=== PATIENT | female | born 1955 | race Caucasian/White ===

== ENCOUNTER 2017-08-14 18:21 | Emergency (ER) | payer SELFPAY ==
[~2017-08-14] VITALS: Ht 157.5 cm; Wt 63.0 kg
[~2017-08-14 18:21] MED LIST: ALBU17I INH; BENZ100 PO; IBUP600T26 PO; LORTA5 PO; NEXI20CA PO; ROSU10 PO
[2017-08-14 18:27] VITALS: BP 138/76; PULSE 111; RESP 18; TEMP 96; O2SAT 95
[2017-08-14] MEDS ORDERED: NEXI20CA PO (18:48)
[2017-08-14] MEDS ORDERED: ROSU20 PO (18:48)
[2017-08-14 18:49] VITALS: BP 138/76; PULSE 111; RESP 18; TEMP 98.3; O2SAT 95
[2017-08-14 19:00] VITALS: BP 114/80; PULSE 102; RESP 18; O2SAT 98
[2017-08-14] MEDS ORDERED: RESP: ALBUTEROL 2.5 MG/IPRATROPIUM 0.5 MG NEB (SCH) NEB ONE (19:00)
--- NOTE | 2017-08-14 19:03 | PD ---
HPI Chief Complaint: Respiratory Symptoms Time Seen by Provider: 18:43 Travel History International Travel<30 days: No Contact w/Intl Traveler<30days: No Traveled to known affect area: No History of Present Illness HPI This is a 61-year-old female who has a significant smoking history. Presents to the emergency department with 9 days of nonproductive cough, constant, moderate severity associated with wheezing, worse in the evenings with some subjective fevers. She has completed a course of prednisone which was prescribed to her by [facility] and she's taken several days of amoxicillin but she's not feeling any better and she is not getting any sleep at night. She says she's had pneumonia in the past and that's which she is concerned about. She's not been using any bronchodilators. PFSH Past Medical History Cardiac Catheterization: Yes (NO CAD) High Cholesterol: Yes Diminished Hearing: No GERD: Yes Immunizations Current: Yes Tetanus Vaccination: Unknown Influenza Vaccination: Yes ?: Not Menopausal: Yes Past Surgical History Appendectomy: Yes Joint Replacement: Yes (LEFT KNEE ATHROSCOPY) Other Surgery: Yes (CYCST ON TAILBONE REMOVED) Social History Alcohol Use: Yes Tobacco Use: Yes (1 PPD) Substance Use: No Allergies-Medications (Allergen,Severity, Reaction): Coded Allergies: No Known Allergies (Verified Adverse Reaction, Unknown, 08/14/17) Reported Meds & Prescriptions Reported Meds & Active Scripts Active Reported Nexium (Esomeprazole DR) 20 Mg Capdr 20 Mg PO DAILY Crestor (Rosuvastatin Calcium) 20 Mg Tab 20 Mg PO DAILY Review of Systems Except as stated in HPI: all other systems reviewed are Neg Physical Exam Narrative GENERAL:Well appearing, no acute distress SKIN: Focused skin assessment warm and dry. HEAD: Atraumatic. Normocephalic. EYES: Pupils equal and round. No injection or drainage. ENT: Moist mucous membranes NECK: Trachea midline. CARDIOVASCULAR: Regular rate and rhythm. No murmur appreciated. RESPIRATORY: Mild expiratory wheeze, no accessory muscle use, speaking full sentences GASTROINTESTINAL: Abdomen soft, non-tender, nondistended. MUSCULOSKELETAL: No obvious deformities. NEUROLOGICAL: Awake and alert. No obvious cranial nerve deficits. Moving all extremities. PSYCHIATRIC: Appropriate mood and affect; insight and judgment normal. Data Data Last Documented VS Vital Signs Date Time Temp Pulse Resp B/P (MAP) Pulse Ox O2 Delivery O2 Flow Rate FiO2 11/27/17 19:00 102 18 114/80 (91) 98 08/14/17 19:00 Room Air 08/14/17 18:49 98.3 Orders Orders Chest, Pa & Lat (08/14/17 ) Albuterol-Ipratropium Neb (Duoneb Neb) (08/14/17 19:00) MDM Medical Decision Making Medical Screen Exam Complete: Yes Emergency Medical Condition: Yes Interpretation(s) afebrile, tachycardic cxr: no acute process Differential Diagnosis Pneumonia, bronchitis, asthma, COPD Narrative Course This is a 61-year-old female who presents to the emergency Department with cough. She has a history of smoking. I suspect she has bronchitis. Chest x- ray was obtained which on my read appears reassuring. I am going to change her from amoxicillin to azithromycin. She also hasn't been using her albuterol inhaler. I will prescribe her a spacer and a new inhaler and I recommended that she use it every 4 hours. I also will prescribe her some codeine cough syrup for the evenings. Diagnosis Primary Impression: Acute bronchitis Qualified Codes: J20.9 - Acute bronchitis, unspecified Patient Instructions: General Instructions Additional Instructions: If you develop severe shortness of breath, chest pain, or difficulty breathing return to the emergency department. Use albuterol every 4 hours for the next 2 days. Then use as needed for wheezing. Complete your course of antibiotics. Follow up with your primary care physician in 2-3 days if your symptoms have not improved. Med/Other Pt SpecificInfo: Prescription(s) given Scripts Azithromycin (Zithromax Z-Rito) 250 Mg Dspk 250 MG PO DIRECTED for Infection, #1 DSPK 0 Refills 500 MG (2 tabs) day 1, then 1 tab days 2-5. Prov: Annamaria Sierra MD 08/14/17 Promethazine-Codeine Liq (Promethazine-Codeine Liq) 6.25-10 Mg/5 Ml Syrp 5-10 ML PO Q6H Y for COUGH AND/OR COLD SYMPTOMS, #60 ML 0 Refills Prov: Annamaria Sierra MD 08/14/17 E-Z Spacer-Aerosol Holding Chamber (E-Z Spacer-Aerosol Holding Chamber) 1 Mis Mis EA .ROUTE DIRECTED for Breathing Treatment, #1 0 Refills Prov: Annamaria Sierra MD 08/14/17 Albuterol 8.5 GM Inh (Proair Hfa 8.5 GM Inh) 90 Mcg/Act Aer 2 PUFF INH Q4-6H Y for SHORTNESS OF BREATH, #1 INHALER 0 Refills 108 mcg/actuation Prov: Annamaria Sierra MD 08/14/17 Disposition: 01 DISCHARGE HOME Condition: Stable Annamaria Sierra MD Aug 14, 2017 19:02
[2017-08-14] MEDS ORDERED: E-ZMIS3 (20:36)
[2017-08-14] MEDS ORDERED: ZITHTAB PO (20:36)
[2017-08-14] MEDS ORDERED: ALBUAER3 INH (20:36)
[2017-08-14] MEDS ORDERED: PROM6.256 PO (20:36)
--- NOTE | 2017-08-14 20:43 | RADRPT ---
EXAM DATE/TIME: 08/14/2017 19:23 [place] COMPARISON: No previous studies available for comparison. INDICATIONS : Fever, cough. MEDICAL HISTORY : None. SURGICAL HISTORY : None. ENCOUNTER: Initial ACUITY: 1 week PAIN SCORE: 0/10 LOCATION: Bilateral chest FINDINGS: PA and lateral views of the chest demonstrate the lungs to be symmetrically aerated without evidence of mass, infiltrate or effusion. The cardiomediastinal contours are unremarkable. Osseous structure s are intact. CONCLUSION: No acute cardiopulmonary process. Bashir Macario MD on August 14, 2017 at 20:41 Board Certified Radiologist. This report was verified electronically.
[2017-08-14 20:44] VITALS: BP 108/76
== END 2017-08-14 20:51 | disposition home or self-care (01) ==
LOC: PHED 18:21
DX: J20.9 Acute bronchitis, unspecified (principal); R50.9 Fever, unspecified; E78.00 Pure hypercholesterolemia, unspecified; F17.200 Nicotine dependence, unspecified, uncomplicated; Z86.79 Personal history of other diseases of the circulatory system; Z87.19 Personal history of other diseases of the digestive system
CPT/HCPCS: 71020; 94664; 99283

== ENCOUNTER 2018-02-25 13:56 | Emergency (ER) | payer BC ==
[~2018-02-25] VITALS: Ht 157.5 cm; Wt 63.0 kg
[~2018-02-25 13:56] MED LIST changes: -ALBU17I INH; +ALBUAER3 INH; -BENZ100 PO; +E-ZMIS3; -IBUP600T26 PO; -LORTA5 PO; +PROM6.256 PO; -ROSU10 PO; +ROSU20 PO; +ZITHTAB PO
[2018-02-25 13:58] VITALS: BP 141/64; PULSE 113; RESP 16; TEMP 98.5; O2SAT 96
[2018-02-25] MEDS ORDERED: SODIUM CHLORIDE 0.9% FLUSH 10 ML FLUSH IV FLUSH PRN (14:30)
--- NOTE | 2018-02-25 14:31 | PD ---
HPI Chief Complaint: GI Complaint Time Seen by Provider: 14:17 Travel History International Travel<30 days: No Contact w/Intl Traveler<30days: No Traveled to known affect area: No History of Present Illness HPI The patient was seen and examined in the presence of the nurse. This patient complains of abdominal pain. Location is left lower quadrant. Severity is moderate. Duration 2 days. She went to an urgent care and nothing was done but she was told to come here. No vomiting. No fever. No urinary complaints. No alleviating factors. No exacerbating factors. PFSH Past Medical History Cardiac Catheterization: Yes (NO CAD) High Cholesterol: Yes Diminished Hearing: No GERD: Yes Immunizations Current: Yes Menopausal: Yes Past Surgical History Appendectomy: Yes Joint Replacement: Yes (LEFT KNEE ATHROSCOPY) Other Surgery: Yes (CYCST ON TAILBONE REMOVED) Social History Alcohol Use: Yes Tobacco Use: Yes (1 PPD) Substance Use: No Allergies-Medications (Allergen,Severity, Reaction): Coded Allergies: No Known Allergies (Verified Adverse Reaction, Unknown, 02/25/18) Reported Meds & Prescriptions Reported Meds & Active Scripts Active Reported Tramadol (Tramadol HCl) 50 Mg Tab 50 Mg PO DAILY PRN Nexium (Esomeprazole DR) 20 Mg Capdr 20 Mg PO DAILY Crestor (Rosuvastatin Calcium) 20 Mg Tab 20 Mg PO DAILY Review of Systems General / Constitutional: No: Fever Eyes: No: Visual changes HENT: No: Headaches Cardiovascular: No: Chest Pain or Discomfort Respiratory: No: Shortness of Breath Gastrointestinal: Positive: Nausea, Abdominal Pain Genitourinary: No: Dysuria Musculoskeletal: No: Pain Skin: No Rash Neurologic: No: Weakness Psychiatric: No: Depression Endocrine: No: Polydipsia Hematologic/Lymphatic: No: Easy Bruising Physical Exam Narrative GENERAL: Well-nourished, well-developed patient in no apparent distress. SKIN: Focused skin assessment reveals no rash and nodules. Skin is Warm and dry. HEAD: Atraumatic. Normocephalic. EYES: Pupils equal and round. No scleral icterus. No injection or drainage. ENT: No nasal bleeding or discharge. Mucous membranes pink and moist. NECK: Trachea midline. No JVD. CARDIOVASCULAR: Regular rate and rhythm. No murmur appreciated. RESPIRATORY: No accessory muscle use. Clear to auscultation. Breath sounds equal bilaterally. GASTROINTESTINAL: Abdomen soft, mild tenderness without rebound or guarding , nondistended. Hepatic and splenic margins not palpable. MUSCULOSKELETAL: No obvious deformities. No clubbing. No cyanosis. No edema. NEUROLOGICAL: Awake and alert. No obvious cranial nerve deficits. Motor grossly within normal limits. Normal speech. PSYCHIATRIC: Appropriate mood and affect; insight and judgment normal. Data Data Last Documented VS Vital Signs Date Time Temp Pulse Resp B/P (MAP) Pulse Ox O2 Delivery O2 Flow Rate FiO2 02/25/18 15:25 92 16 116/75 (89) 96 Room Air 02/25/18 13:58 98.5 Orders Orders Basic Metabolic Panel (Bmp) (02/25/18 14:22) Complete Blood Count With Diff (02/25/18 14:22) Urinalysis - C+S If Indicated (02/25/18 14:22) Ct Abd/Pel W Iv Contrast(Rout) (02/25/18 14:22) Iv Access Insert/Monitor (02/25/18 14:22) Ecg Monitoring (02/25/18 14:22) NPO (02/25/18 14:22) Sodium Chloride 0.9% Flush (Ns Flush) (02/25/18 14:30) Iohexol 350 Inj (Omnipaque 350 Inj) (02/25/18 15:24) Labs Laboratory Tests Test 02/25/18 14:20 02/25/18 14:30 Urine Collection Type CLEAN CATCH Urine Color YELLOW Urine Turbidity CLEAR Urine pH 6.0 Urine Specific Saffell 1.025 Urine Protein NEG mg/dL Urine Glucose (UA) NEG mg/dL Urine Ketones NEG mg/dL Urine Occult Blood TRACE Urine Nitrite NEG Urine Bilirubin NEG Urine Urobilinogen 0.2 MG/DL Urine Leukocyte Esterase NEG Urine RBC 4-9 /hpf Urine WBC 0-2 /hpf Urine Squamous Epithelial Cells 0-5 /hpf Urine Renal Epithelial Cells 0-5 /hpf Urine Mucus FEW /lpf Microscopic Urinalysis Comment CULT NOT INDICATED White Blood Count 5.9 TH/MM3 Red Blood Count 4.56 MIL/MM3 Hemoglobin 14.4 GM/DL Hematocrit 41.7 % Mean Corpuscular Volume 91.3 FL Mean Corpuscular Hemoglobin 31.6 PG Mean Corpuscular Hemoglobin Concent 34.6 % Red Cell Distribution Width 12.8 % Platelet Count 228 TH/MM3 Mean Platelet Volume 8.4 FL Neutrophils (%) (Auto) 65.2 % Lymphocytes (%) (Auto) 28.0 % Monocytes (%) (Auto) 3.7 % Eosinophils (%) (Auto) 2.5 % Basophils (%) (Auto) 0.6 % Neutrophils # (Auto) 3.9 TH/MM3 Lymphocytes # (Auto) 1.6 TH/MM3 Monocytes # (Auto) 0.2 TH/MM3 Eosinophils # (Auto) 0.1 TH/MM3 Basophils # (Auto) 0.0 TH/MM3 CBC Comment DIFF FINAL Differential Comment Blood Urea Nitrogen 11 MG/DL Creatinine 0.79 MG/DL Random Glucose 137 MG/DL Calcium Level 9.1 MG/DL Sodium Level 139 MEQ/L Potassium Level 3.4 MEQ/L Chloride Level 105 MEQ/L Carbon Dioxide Level 27.0 MEQ/L Anion Gap 7 MEQ/L Estimat Glomerular Filtration Rate 74 ML/MIN MDM Medical Decision Making Medical Screen Exam Complete: Yes Emergency Medical Condition: Yes Medical Record Reviewed: Yes Differential Diagnosis Diverticulitis, colitis, ileus Narrative Course I have reviewed the patient's electronic medical record. IV placed and labs sent Urinalysis is clean CT of abdomen and pelvis shows mild diverticulitis Labs are normal Stable for outpatient follow-up with antibiotic therapy prescribed, Cipro and Flagyl Diagnosis Primary Impression: Acute diverticulitis Additional Instructions: The patient was advised to follow up with their physician and return if they worsen. Med/Other Pt SpecificInfo: Prescription(s) given Scripts Metronidazole (Flagyl) 500 Mg Tab 500 MG PO QID for Infection for 7 Days, TAB 0 Refills Prov: Rayo Cook MD 02/25/18 Ciprofloxacin (Cipro) 500 Mg Tab 500 MG PO BID for Infection, #14 TAB 0 Refills Prov: Rayo Cook MD 02/25/18 Disposition: 01 DISCHARGE HOME Condition: Stable Rayo Cook MD Feb 25, 2018 14:31
[2018-02-25 14:41] LABS: BILIRUBIN, URINE NEG (NEG); BLOOD, URINE TRACE (NEG); GLUCOSE,URINE NEG (NEG); KETONE, URINE NEG (NEG); NITRITE,URINE NEG (NEG); URINE COLOR YELLOW (YELLW/STRAW); URINE LEUKOCYTE ESTERASE NEG (NEG)
[2018-02-25 14:44] LABS: AUTOMATED NEUTROPHIL # 3.9 TH/MM3 (1.8-7.7); BASOPHIL % 0.6 % (0.0-2.0); EOSINOPHIL # 0.1 TH/MM3 (0-0.4); EOSINOPHIL % 2.5 % (0.0-4.0); HEMATOCRIT 41.7 % (35.0-46.0); HEMOGLOBIN 14.4 GM/DL (11.6-15.3); LYMPHOCYTE # 1.6 TH/MM3 (1.0-4.8); MEAN CELL VOLUME 91.3 FL (80.0-100.0); MEAN CORPUSCULAR HEMOGLOBIN 31.6 PG (27.0-34.0); MEAN CORPUSCULAR HGB CONC 34.6 % (32.0-36.0); MEAN PLATELET VOLUME 8.4 FL (7.0-11.0); MONO % 3.7 % (0.0-8.0); MONOCYTE # 0.2 TH/MM3 (0-0.9); NEUT % 65.2 % (16.0-70.0); PLATELET COUNT 228 TH/MM3 (150-450); RED BLOOD COUNT 4.56 MIL/MM3 (4.00-5.30); RED CELL DISTRIBUTION WIDTH 12.8 % (11.6-17.2); WHITE BLOOD COUNT 5.9 TH/MM3 (4.0-11.0)
[2018-02-25 14:45] LABS: WBC, URINE 0-2 /hpf (0-5)
[2018-02-25 14:46] LABS: MUCUS URINE FEW /lpf (OCC); RENAL EPITHELIAL CELLS 0-5 /hpf; SQUAMOUS EPITHELIAL CELL URINE 0-5 /hpf (0-5)
[2018-02-25 14:58] LABS: CALCIUM 9.1 MG/DL (8.5-10.1)
[2018-02-25 15:02] LABS: CREATININE 0.79 MG/DL (0.50-1.00)
[2018-02-25] MEDS ORDERED: IOHEXOL 350 MG/ML 10 ML VIAL (for RAD DIAG) IVCONTRAST ONE (15:24)
[2018-02-25 15:25] VITALS: BP 116/75; PULSE 92; RESP 16; O2SAT 96
--- NOTE | 2018-02-25 15:39 | RADRPT ---
EXAM DATE: 02/25/2018 3:27 PM EDT AGE/SEX: 62 years / Female INDICATIONS: Left lower quadrant pain. CLINICAL DATA: This is the patient's initial encounter. Patient reports that signs and symptoms have been present for 2 days and indicates a pain score of 5/10. MEDICAL/SURGICAL HISTORY: Hypercholesterolemia. Gastroesophageal reflux disease. Appendectomy. ORAL CONTRAST: No oral contrast ingested. RADIATION DOSE: 9.09 CTDI (mGy) COMPARISON: No prior exams available for comparison. TECHNIQUE: Multiple contiguous axial images were obtained through the abdomen and pelvis following b olus infusion of 95 ml Omnipaque 350 (iohexol) nonionic water-soluble contrast as a single exam dos e. No oral contrast ingested. Using automated exposure control and adjustment of the mA and/or kV ac cording to patient size, the radiation dose was kept as low as reasonably achievable to obtain optima l diagnostic quality images. FINDINGS: Lung bases are clear. No acute findings in the liver, spleen, adrenals, kidneys or pancreas. No calci fied gallstones or biliary ductal dilatation. Tiny liver cyst. There is no free air or free fluid. There are inflammatory changes in the lower pelvis around numerou s sigmoid diverticula characteristic of a mild diverticulitis. No discrete abscess, obstruction. Nons pecific calcifications in the right adnexal region. CONCLUSION: 1. Mild distal sigmoid diverticulitis without abscess, obstruction, free fluid or free air. Electronically signed by: Jaskaran Sweet MD 02/25/2018 3:38 PM EDT
[2018-02-25] MEDS ORDERED: TRAM50TA PO (15:53)
[2018-02-25] MEDS ORDERED: METR-1 PO (16:18)
[2018-02-25] MEDS ORDERED: CIPR-9 PO (16:18)
[2018-02-25 16:20] VITALS: BP 119/74
== END 2018-02-25 17:05 | disposition home or self-care (01) ==
LOC: PHED 13:56
DX: K57.92 Diverticulitis of intestine, part unspecified, without perforation or abscess without bleeding (principal); E78.00 Pure hypercholesterolemia, unspecified; K21.9 Gastro-esophageal reflux disease without esophagitis; F17.200 Nicotine dependence, unspecified, uncomplicated
CPT/HCPCS: 74177; 80048; 81001; 85025; 99284; Q9967